=== PATIENT | male | born 1940 | race African-American/Black ===

== ENCOUNTER 2022-03-13 10:38 | Day surgery (SDCO) | payer MEDICARE ==
[~2022-03-13] VITALS: Ht 177.8 cm; Wt 124.3 kg
[2022-03-13 11:41] LABS: BASOPHIL 0.5 % (0-2); EOSINOPHIL 0.8 % (0-7); HCT 38.3 % (42.0-52.0); HGB 12.3 g/dl (13.2-18.0); LYMPHOCYTE 9.1 % (15-48); MCH 33.2 pg (25.0-31.0); MCHC 32.1 g/dL (32.0-36.0); MCV 103.5 fL (78.0-100.0); MONOCYTE 11.5 % (0-12); MPV 10.4 fL (6.0-9.5); NEUTROPHIL 77.5 % (41-80); NRBC 0; PLT 239 K/uL (150-400); RDW 14.2 % (11.5-14.0); WBC 9.5 K/uL (4.0-10.5)
[2022-03-13 11:58] LABS: INR 1.04 (0.9-1.2); PROTHROMBIN TIME 13.3 SECONDS (11.9-13.9)
[2022-03-13 11:59] LABS: PTT 36.7 SECONDS (24.9-34.6)
[2022-03-13 12:17] LABS: INFLUENZA A NAA NEGATIVE (NEGATIVE)
[2022-03-13 12:30] LABS: BILIRUBIN NEGATIVE (NEGATIVE); BLOOD TRACE-INTACT Ery/uL (NEGATIVE); CLARITY CLEAR (CLEAR); COLOR YELLOW (YELLOW); GLUCOSE (U) NORMAL (NORMAL); LEUKOCYTES NEGATIVE Leu/uL (NEGATIVE); NITRITE NEGATIVE (NEGATIVE); PROTEIN 1+ mg/dL (NEGATIVE); SPECIFIC GRAVITY 1.015 (1.001-1.030); UROBILINOGEN 0.2 mg/dL (0.2-1.0)
[2022-03-13 12:39] LABS: CORONAVIRUS 2019 SARS-COV-2 POSITIVE (NEGATIVE)
[2022-03-13 12:40] LABS: URINARY RBC RARE
[2022-03-13 12:51] LABS: CREATININE 1.82 mg/dL (0.67-1.17); POTASSIUM 4.5 mmol/L (3.5-5.1)
[2022-03-13 12:52] LABS: ALBUMIN 3.4 g/dL (3.4-5.0); BILIRUBIN - TOTAL 0.3 mg/dL (0.2-1.0); GLOBULIN (CALCULATION) 3.9 g/dL; TOTAL PROTEIN 7.3 g/dL (6.4-8.2)
[2022-03-13] MEDS ORDERED: OXYCODONE-APAP1 TAB PO (17:06)
[2022-03-13] MEDS ORDERED: VITAMIN D350 MCG PO (17:07)
[2022-03-13] MEDS ORDERED: ALLOPURINOL 30300 MG PO (17:07)
[2022-03-13] MEDS ORDERED: OMEPRAZOLE40 MG PO (17:07)
[2022-03-13] MEDS ORDERED: SULFASALAZINE500 MG PO (17:09)
[2022-03-13] MEDS ORDERED: CHLORTHALIDONE50 MG PO (17:09)
[2022-03-13] MEDS ORDERED: LOPRESSOR25 MG PO (17:10)
[2022-03-13] MEDS ORDERED: TAMSULOSIN HCL0.4 MG PO (17:10)
[2022-03-13] MEDS ORDERED: FINASTERIDE5 MG PO (17:11)
[2022-03-13] MEDS ORDERED: POTASSIUM CHLO20 ME2 PO (17:11)
[2022-03-13] MEDS ORDERED: AMLODIPINE BESY10 MG PO (17:11)
[2022-03-14 07:36] LABS: BASOPHIL 0.3 % (0-2); EOSINOPHIL 0 % (0-7); HCT 39.4 % (42.0-52.0); HGB 12.2 g/dl (13.2-18.0); LYMPHOCYTE 16.8 % (15-48); MCH 33.3 pg (25.0-31.0); MCV 107.7 fL (78.0-100.0); MONOCYTE 11.7 % (0-12); NEUTROPHIL 69.6 % (41-80); NRBC 0; PLT 214 K/uL (150-400); RBC 3.66 M/uL (4.70-6.00); RDW 14.4 % (11.5-14.0); WBC 6.4 K/uL (4.0-10.5)
[2022-03-14 09:23] LABS: BUN/CREAT RATIO (CALC) 14.6 RATIO; CREATININE 1.58 mg/dL (0.67-1.17); MAGNESIUM 1.6 mg/dL (1.8-2.4); POTASSIUM 4.4 mmol/L (3.5-5.1)
[2022-03-14] MEDS ORDERED: PREDNISONE 20MG20 MG PO (11:07)
--- NOTE | 2022-03-14 11:28 | NUR ---
CALLED [phone] TO ORDER A ROLLING WALKER, WAS TOLD THAT IT WAS NOT AN EMERGENCY AND THEY WOULD NOT BRING ONE. I EXPRESSED MY CONCERNS THAT IT WAS AN EMERGENCY FOR THE PATIENT'S SAFETY. I LET MELIZA KNOW THAT THE ISSUE, SHE CALLED THE SAME NUMBER AND WAS TOLD THE SAME THING, THEY STATED THEY WOULD HAVE THE CULLET TRUCKER ME IF THEY COULD DO IT. THE CULLET TRUCKER AND STATED THAT IT WAS NOT AN EMERGENCY AND WOULD NOT BE BRINGING ONE. RIGHT AFTER I GOT OFF THE PHONE ANOTHER PATIENT NEEDED O2, CALLED AND REQUESTED THE O2 AND ASKED SINCE THEY HAD TO COME DELIVER THE O2 IF THEY COULD JUST BRING THE WALKER. WAS TOLD THAT SHE WOULD CALL ME BACK IF THE DITCHING MACHINE OPERATING ENGINEER DID NOT HAVE ONE ON HIS TRUCK. WILL BE WAITING FOR A CALL BACK
--- NOTE | 2022-03-14 13:38 | NUR ---
[facility] HAS ACCEPTED PATIENT
== END 2022-03-14 14:15 | disposition home or self-care (01) ==
LOC: FER 10:38 → FMS 14:39
PROVIDERS: Internal Medicine; ADMIT Allergy & Immunology Allergy
DX: S22.43XA Multiple fractures of ribs, bilateral, initial encounter for closed fracture (principal); U07.1 COVID-19; G93.41 Metabolic encephalopathy; I12.9 Hypertensive chronic kidney disease with stage 1 through stage 4 chronic kidney disease, or unspecified chronic kidney disease; N18.30 Chronic kidney disease, stage 3 unspecified; K51.90 Ulcerative colitis, unspecified, without complications; M06.9 Rheumatoid arthritis, unspecified; M10.9 Gout, unspecified; N40.0 Benign prostatic hyperplasia without lower urinary tract symptoms; W19.XXXA Unspecified fall, initial encounter; Y92.009 Unspecified place in unspecified non-institutional (private) residence as the place of occurrence of the external cause
CPT/HCPCS: 36415; 70450; 71250; 80048; 80053; 81001; 82550; 83605; 83735; 83880; 84484; 85025; 85610; 85730; 86140; 87040; 93005; G0378; J1100; J2543; J7030; J7512; U0002